=== PATIENT | male | born 1960 | race Two or more races ===

== ENCOUNTER 2018-06-29 14:03 | Outpatient (CLI) | payer OTHER ==
[~2018-06-29 14:03] MED LIST: GADOBUTROL 10 MMOL/10 ML PFS ONE
== END 2018-06-29 23:59 | disposition home or self-care (01) ==
LOC: MRI 14:03
PROVIDERS: ATTEND Internal Medicine Endocrinology, Diabetes & Metabolism
DX: J35.1 Hypertrophy of tonsils (principal); K11.8 Other diseases of salivary glands; J34.89 Other specified disorders of nose and nasal sinuses
CPT/HCPCS: 70543; A9585